=== PATIENT | male | born 1995 | race Caucasian/White ===

== ENCOUNTER 2017-01-08 20:50 | Emergency (ER) | payer BC ==
[~2017-01-08] VITALS: Ht 182.9 cm; Wt 113.4 kg
[~2017-01-08 20:50] MED LIST: DOCU-30 PO; IBUP800T; OXYC1TAB7 PO
[2017-01-08 20:54] VITALS: BP 148/91
[2017-01-08] MEDS ORDERED: HYDROcodone/APAP 5/325 TABLET PO ONE (22:30)
[2017-01-08] MEDS ORDERED: HYDROcodone/APAP 5/325 TABLET ONE (22:35)
== END 2017-01-08 23:16 | disposition home or self-care (01) ==
LOC: ED 23:14
DX: S67.02XA Crushing injury of left thumb, initial encounter (principal); I10 Essential (primary) hypertension; W23.0XXA Caught, crushed, jammed, or pinched between moving objects, initial encounter; Y93.89 Activity, other specified; Y92.89 Other specified places as the place of occurrence of the external cause; Y99.8 Other external cause status
CPT/HCPCS: 11730